=== PATIENT | male | born 1970 | race Caucasian/White ===

== ENCOUNTER → 2018-03-15 | Outpatient (REF) | payer BC ==
[2015-11-18 09:17] VITALS: BMI 29.2
[~2018-03-15] MED LIST: LEVO750T44 PO; METR-160 PO
[2018-03-15 16:43] LABS: PLATELET COUNT, AUTOMATED 232 K/uL (150-450)
== END ==
PROVIDERS: ATTEND Nurse Practitioner Family
DX: R10.9 Unspecified abdominal pain (principal)
CPT/HCPCS: 82040; 82247; 82310; 82374; 82435; 82565; 82947; 84075; 84132; 84155; 84295; 84450; 84460; 84520; 85025